=== PATIENT | male | born 1940 | race Caucasian/White ===

== ENCOUNTER 2016-06-12 19:41 | Emergency (ER) | payer MEDICARE ==
[2016-06-12 20:32] LABS: Bilirubin Negative (Negative); Blood, Urine Negative (Negative); Glucose, Urine (Dipstick) Negative (Negative); Ketone, Urine Negative (Negative); Nitrite Negative (Negative); Protein, Urine (Dipstick) Negative (Neg-Trace); Urobilinogen 0.2 mg/dL (0.2-1.0)
[2016-06-12 20:36] LABS: Methadone Not Detected (NotDetected); Methamphetamine Not Detected (NotDetected)
[2016-06-12 20:46] LABS: Acetaminophen Less than 3.0 mcg/mL (10.0-30.0); CK (CPK) 208 U/L (30-200); Salicylate Less than 5.0 mg/dL (15.0-30.0)
[2016-06-12 20:48] LABS: ALT (SGPT) 31 U/L (0-55); AST (SGOT) 34 U/L (5-34); Alkaline Phosphatase 104 U/L (40-150); Anion Gap 17 mmol/L (10-20); BUN (Urea Nitrogen) 14 mg/dL (8.4-25.7); Bilirubin, Total 0.6 mg/dL (0.2-1.2); Calc. Creatinine Clearance 0 mL/min (70-130); Calcium 9.4 mg/dL (7.8-10.44); Carbon Dioxide 26 mmol/L (23-31); Chloride 96 mmol/L (98-107); Estimated GFR-MDRD 81; Globulin 3.6 g/dL (2.4-3.5); Protein, Total 8.1 g/dL (5.8-8.1)
[2016-06-12] MEDS ORDERED: Triple Antibiotic Oint 1 GM Packet ONE (21:04)
--- NOTE | 2016-06-12 23:07 | CT ---
CT BRAIN WITHOUT CONTRAST 06/12/16 HISTORY: Hematoma of the forehead with abrasions. Intoxicated. COMPARISON: None. FINDINGS: There is a large left forehead hematoma with small focus of subcutaneous gas, most likely laceration which is not visualized. The underlying calvarium is intact. The paranasal sinuses are clear aside from an air fluid level within the right maxillary sinus. Ther e is moderate motion artifact limiting intracranial evaluation. No territorial infarct or hemorrhage . No midline shift or mass effect. Ventricular size and extra-axial CSF spaces are normal for age. IMPRESSION: 1. Left forehead hematoma and laceration with small focus of subcutaneous gas. 2. No acute territorial infarct or hemorrhage. 3. Exam is slightly limited due to motion artifact. 4. Right maxillary sinus air fluid level to suggest acute sinusitis. POS: [facility]
== END 2016-06-12 21:08 ==
LOC: NAV ERS 19:41
DX: S00.83XA Contusion of other part of head, initial encounter (principal); J32.0 Chronic maxillary sinusitis; F10.20 Alcohol dependence, uncomplicated; I10 Essential (primary) hypertension; Z72.0 Tobacco use; Y08.89XA Assault by other specified means, initial encounter
CPT/HCPCS: 70450; 80053; 80306; 80307; 81003; 82140; 82550